=== PATIENT | female | born 1960 | race African-American/Black ===

== ENCOUNTER 2018-10-29 08:06 | Emergency (ER) | payer OTHER ==
[~2018-10-29] VITALS: Ht 152.4 cm; Wt 63.0 kg
[2018-10-29] MEDS ORDERED: ASPIRIN 81MG TABLET PO ONE (08:45)
[2018-10-29 08:59] LABS: BASOPHILS % 1.1 % (0.0-2.0); EOSINOPHILS % 2.9 % (0.0-5.0); HEMATOCRIT. 42.1 % (36.0-48.0); HEMOGLOBIN. 14.2 g/dL (12.0-16.0); LYMPHOCYTES % 37.8 % (20.0-50.0); MEAN CORPUSCULAR HEMOGLOBIN 32.5 pg (28.0-32.0); MEAN CORPUSCULAR VOLUME 96.3 fL (81.0-99.0); MEAN PLATELET VOLUME 8.1 fl (7.4-10.4); MONOCYTES % 8.1 % (2.0-8.0); NEUTROPHILS % 50.1 % (40.0-76.0); PLATELET 296 x1000/uL (130-400); RED BLOOD CELL COUNT 4.37 mill/uL (4.2-5.4); RED CELL DISTRIBUTION WIDTH 13.1 % (11.6-14.6)
[2018-10-29 09:05] LABS: CHLORIDE 108 mEq/L (98-107)
[2018-10-29 09:09] LABS: D-DIMER < 0.19 mg/L FEU (<0.50); PARTIAL THROMBOPLASTIN TIME 36.5 sec (23.4-31.0); PROTHROMBIN TIME 10.8 sec (9.6-11.0)
[2018-10-29 14:45] VITALS: BP 134/79
== END 2018-10-29 14:58 | disposition home or self-care (01) ==
LOC: ER 08:06
DX: R06.00 Dyspnea, unspecified (principal); R00.2 Palpitations; E78.00 Pure hypercholesterolemia, unspecified; Z88.0 Allergy status to penicillin; Z86.000 Personal history of in-situ neoplasm of breast; Z98.890 Other specified postprocedural states
CPT/HCPCS: 36415; 71045; 80053; 83880; 84443; 84484; 85025; 85379; 85610; 85730; 93005; 99284; Z7610